=== PATIENT | female | born 1945 | race Caucasian/White ===

== ENCOUNTER 2022-12-19 06:52 | Outpatient (CLI) | payer MEDICARE, SELFPAY ==
--- NOTE | 2022-12-19 07:23 | W.ANESCHARGE ---
Anesthesia Charges Start Date/Time Anesthesia Start Date: 12/19/22 Anesthesia Start Time: 08:05 Stop Date/Time Anesthesia Stop Date: 12/19/22 Anesthesia Stop Time: 08:30 Summary Extremes of Age - Over 70 or under 1: MDA
--- NOTE | 2022-12-19 09:07 | W.ANESCHARGE ---
Anesthesia Charges Start Date/Time Anesthesia Start Date: 12/19/22 Anesthesia Start Time: 08:05 Stop Date/Time Anesthesia Stop Date: 12/19/22 Anesthesia Stop Time: 08:30
== END 2022-12-19 06:53 | disposition home or self-care (01) ==
PROVIDERS: PCP Nurse Practitioner Family; Visit Provider Internal Medicine Gastroenterology
DX: R19.5 Other fecal abnormalities (principal); K64.8 Other hemorrhoids; K63.5 Polyp of colon
CPT/HCPCS: 45380; 811; 88305; 99100; J2704